=== PATIENT | female | born 1965 | race Caucasian/White ===

== ENCOUNTER 2016-10-07 16:59 | Emergency (ER) ==
[2016-10-07 17:17] VITALS: BP 129/72
--- NOTE | 2016-10-07 19:02 | PROVIDER DOCUMENTATION ---
HPI-EENT General - General Chief Complaint: Cold Symptoms Stated Complaint: SINUS HEADACHE,FEVER Time Seen by Provider: 10/07/16 18:53 Allergies/Adverse Reactions: Patient Allergies Allergy/AdvReac Type Severity Reaction Status Date / Time Corticosteroids Allergy Intermediate Unknown Verified 10/07/16 17:17 (Glucocorticoids) Penicillins Allergy Intermediate Unknown Verified 10/07/16 17:17 Latex, Natural Rubber Allergy HIVES Verified 10/07/16 17:17 Home Medications: Home Medication List Medication Instructions Recorded Confirmed Last Taken Type Cyanocobalamin (Vitamin B-12) 1,000 mg PO QAM 03/03/13 10/07/16 07/08/16 History [B-12] Multivitamin [Multi-Vitamin Daily] 1 each PO QHS 03/03/13 10/07/16 07/08/16 History Biotin [Biotin-D] 1 gm PO BID 10/09/14 10/07/16 07/08/16 History Buspirone [Buspar] 30 mg PO BID 10/09/14 10/07/16 07/08/16 History Cetirizine HCl [Zyrtec] 10 mg PO QAM 10/09/14 10/07/16 07/08/16 History Omeprazole [Prilosec] 20 mg PO QAM 10/09/14 10/07/16 07/08/16 History Paroxetine HCl [Paxil] 20 mg PO QPM 10/09/14 10/07/16 07/08/16 History Aspirin/Calcium Carbonate/Mag 325 mg PO QAM 11/18/14 10/07/16 07/08/16 History [Aspirin Buffered 325 mg Tab] ATORVAstatin [Lipitor] 20 mg PO QHS #30 tablet 11/20/14 10/07/16 07/08/16 Rx Amlodipine [Norvasc] 5 mg PO QAM 10/01/15 10/07/16 07/08/16 History Tramadol HCl [Ultram] 50 mg PO Q6H PRN PRN #12 tablet 12/23/15 10/07/16 Rx Cyclobenzaprine [Flexeril] 10 mg PO TID 03/30/16 10/07/16 07/08/16 History Furosemide [Lasix] 20 mg PO DAILY 09/01/16 03/11/17 12/10/16 History Isosorbide Mononitrate [Isosorbide 15 mg PO DAILY 03/30/16 10/07/16 07/08/16 History Mononitrate ER] Melatonin [Melatin] 3 mg PO QHS 03/30/16 10/07/16 07/08/16 History Meloxicam [Mobic] 15 mg PO DAILY 03/30/16 10/07/16 07/08/16 History [place]-3/Dha/Epa/Fish Oil [Fish Oil 1,000 mg PO DAILY 03/30/16 10/07/16 07/08/[address] 500 mg Softgel] Rizatriptan [Maxalt] 10 mg PO PRN PRN 03/30/16 10/07/16 07/08/16 History Albuterol 2.5MG/Ipratrop 0.5MG 3 ml INH Q4-6H PRN PRN #30 neb 07/08/16 10/07/16 Unknown Rx [Duoneb] Albuterol Sulfate [Albuterol 18 gm IH 3-4XDAY PRN PRN #1 07/08/16 10/07/16 Unknown Rx Sulfate Hfa] hfa.aer.ad Sulfamethoxazole/Trimethoprim 1 each PO BID #14 tablet 10/07/16 Unknown Rx [Bactrim Ds Tablet] - History of Present Illness-EENT General Nature of Presenting Problem: 50 yof c/o flu like symptoms for 2 days. Body aches, sinus congestion, cough, has has tenderness to maxillary sinuses. EENT Location: reports: nose, facial. denies: eye (R), eye (L), ear (R), ear (L ), mouth, throat, dental, other Quality of Pain: reports: aching, pressure. denies: none, burning, cramping, dull, fullness, indigestion, sharp, stabbing, tearing, throbbing, tightness, other Severity: reports: mild Onset/Duration: reports: 2 days ago Timing: reports: still present, getting worse. denies: improving, gone now, resolved prior to arrival, intermittent, constant, changing over time, other Prearrival Treatment: Initiated over the counter meds, Not Used no prearrival treatment, Not Used prescription meds, Not Used squeezing nostrils, Not Used nasal packing, Not Used flushing eyes, Not Used other Associated Symptoms: reports: cough, facial pain/swelling, sinus infection Other injuries?: denies: neck, head, back, other Locality of Occurance: Home Similar Symptoms Previously?: No Recently seen or treated by another doctor?: No - Eyes Eye Problem Symptoms: denies: eye pain, decrease vision, blurred vision, double vision, curtain, other, burning, itching, sensitivity to light, redness, matting , orbital swelling, eyelid swelling, foreign body sensation - Ears Ear Problem Symptoms: reports: none - Throat/Dental Throat/Dental Problem Symptoms: reports: none Review of Systems - Adult - REVIEW OF SYSTEMS - ADULT Constitutional: reports: see HPI, chills. denies: no symptoms reported, fever, fatique, night sweats, weight gain, weight loss, other Eyes: reports: no symptoms reported. denies: see HPI, discharge, dry eyes, decreased vision, blurred vision, double vision, eye pain, redness, other Ears, Nose, Mouth & Throat: reports: see HPI, sinus problem. denies: no symptoms reported, ear discharge, ear pain, hearing loss, tinnitus, epistaxis, nose pain, loose teeth, mouth/dental pain, mouth swelling, hoarseness, throat pain, throat swelling, other Cardiovascular: reports: no symptoms reported. denies: see HPI, chest pain, edema, heart murmur, irregular heart rate, orthopnea, palpitations, poor circulation, PND, syncope, other Respiratory: reports: no symptoms reported. denies: see HPI, chronic cough, cough, dyspnea on exertion, excessive sputum production, hemoptysis, pleurisy, shortness of breath, wheezing, other Gastrointestinal: reports: no symptoms reported. denies: see HPI, abdominal pain, hematemesis, constipation, diarrhea, difficulty swallowing, frequent heartburn, nausea, poor appetite, rectal bleeding, vomiting, other Genitourinary: reports: no symptoms reported. denies: see HPI, dysuria, discharge, frequency, flank pain, frequent UTI's, hematuria, hesitency, incontinence, urinary retention, urgency, other Musculoskeletal: reports: no symptoms reported. denies: see HPI, bone pain, back pain, frequent leg cramps, joint pain, joint swelling, muscle aches, muscle weakness, neck pain, other Integumentary: reports: no symptoms reported. denies: see HPI, hives, hair loss , itching, mole changes, nail changes, rash, skin sores/ulcer, skin thickening, other Neurological: reports: no symptoms reported. denies: see HPI, ataxia, dizziness /vertigo, headache/migraines, loss of balance, numbness, paresthesia, seizure, slurred speech, syncope, tremors, other Psychiatric: reports: no symptoms reported. denies: see HPI, anxiety, anti- depressant use, alcohol/drug dependence, depression, emotional problems, insomnia, panic attacks, suicidal thoughts, other Endocrine: reports: no symptoms reported. denies: see HPI, change in skin pigment, excessive sweating, goiter, cold intolerance, heat intolerance, increased hunger, increased thirst, polyuria, other Hematologic/Lymphatic: reports: no symptoms reported. denies: see HPI, blood clots, easy bruising, low blood count, lymphedema, prolonged bleeding, swollen lymph nodes, transfusions, other Allergic/Immunologic: reports: no symptoms reported. denies: see HPI, allergic reactions, allergic rhinitis, asthma, eczema, food allergy, frequent infections , hay fever, hives, positive PPD, urticaria, other All Other Systems: Reviewed and Negative Past History - Adult - PAST MEDICAL HISTORY-ADULT Review of Records: reports: Old Records Reviewed, Nursing Assessment Review, Medications Reviewed, Social history reviewed & non-contributory. Major Childhood Illnesses: reports: denies history Cardiovascular: reports: CAD, HTN, other (recurrent chest pain with f/u with Dr. Cornejo) Respiratory: reports: asthma, sleep apnea Gastrointestinal: reports: GERD Obstetrical/Gynecological: reports: other (Pre-menopausal) Genitourinary: reports: denies history Musculoskeletal: reports: arthritis Neurological: reports: denies history Psychiatric: reports: anxiety, depression Endocrine/Immune: reports: Diabetes Other Conditions: reports: denies history - PRIOR SURGERIES/PROCEDURES Surgical/Procedure History: reports: cholecystectomy, BTL, , tonsillectomy, other (D&C) - IMMUNIZATION STATUS Childhood Immunizations: See Nurse Assessment Flu Vaccine: See Nurse Assessment - FAMILY HISTORY Family History: reviewed, not pertinent Physical Exam- EENT - Physical Exam EENT Initial Vital Signs Reviewed: Yes General Appearance: appears well, alert, no apparent distress. negative: mild distress, moderate distress, severe distress, cachetic, obese, thin, anxious, lethargic, slow to respond, obtunded, combative, other Eye Exam: bilateral eye: normal inspection, PERRL, EOMI Ear Exam: bilateral ear: auricle normal, canal normal, TM normal Nasal Exam: discharge, sinus tenderness. negative: normal inspection, active bleeding, dried blood, foreign body, other Throat Exam: normal mouth inspection, pharynx normal. negative: dental tenderness, excessive drooling, foreign body, mandibular swelling, maxillary swelling, pharynx swelling, pharynx tenderness, tongue swollen, tonsillar exudate, tonsillar swelling, trismus, uvula swelling, voice changes, other Neck: non-tender, full range of motion, supple, normal inspection. negative: Brudzinski's sign, carotid bruit, C-spine tenderness, limited range of motion, lymphadenopathy, meningismus, trachial deviation, tender lateral, tender midline , thyromegaly, other Respiratory: chest non-tender, lungs clear, normal breath sounds, no pleuratic chest pain, no respiratory distress, no accessory muscle use. negative: respiratory distress, decreased breath sounds, accessory muscle use, crackles, rales, rhonchi, stridor, wheezing, dull on percussion, prolonged expiration, pain on inspiration, plerual rub, retractions, splinting, decreased rate, increased rate, crepitus, other Cardiovascular: normal peripheral pulses, regular rate, rhythm, no edema, no gallop, no JVD, no murmur. negative: JVD, bradycardia, tachycardia, diastolic murmur, systolic murmur, gallop/S3, gallop/S4, extra beats, friction rub, irregularly irregular, PMI displaced laterally, other Abdominal Exam: normal bowel sounds, non tender, soft, no organomegaly, no pulsatile mass. negative: abdominal bruit, abnormal bowel sounds, distended, guarding, rigid, rebound, tenderness, hernia, mass, hepatomegaly, spleenomegaly , McBurney's point tenderness, Neal's sign, obturator sign, prominent aortic pulsations, psoas, Rovsing's sign, other Lymphatic: no adenopathy. negative: axilla node tender, cervical node tenderness, inguinal node tender, enlargement, striations, streaking, other Back Exam: normal inspection, no CVA tenderness, no vertebral tenderness. negative: CVA tenderness, decreased range of motion, ecchymosis, kyphosis, lordosis, muscle spasm, scoliosis, swelling, vertebral tenderness, other Extremity: normal range of motion, non-tender, normal gait, normal inspection, no pedal edema, no calf tenderness, normal capillary refill. negative: pelvis stable, abnormal NV exam, calf tenderness, deformity, erythema, inflammation, joint effusion, pulse deficit, pedal edema, slow capillary refill, swelling, tenderness, other Integumentary: normal color, normal turgor, warm/dry. negative: abrasion(s), blanching, cyanosis, diaphoresis, decubitus, dependent lividity, ecchymosis, embolic lesions, erythema, signs of IVDA, jaundice, laceration(s), mottled, pallor, petechiae, purpura, rash, swelling, tenderness, warm, zoster-like rash, other Neurologic: grossly normal Psych/Mental Status: oriented x 3 Progress - PLAN OF CARE/RESULTS Progress/Plan/Lab Results: Laboratory Tests 10/07/16 19:00 Influenza A (Rapid) NEGATIVE Influenza B (Rapid) NEGATIVE Orders Category Date Time Status INFLUENZA SCREEN PL Stat Lab 10/07/16 19:00 Completed Vital Signs Temp Pulse Resp BP Pulse Ox 10/07/16 17:14 97.5 F L 55 L 18 129/72 99 Corticosteroids (Glucocorticoids) Allergy (Intermediate, Verified 10/07/16 17:17 ) Unknown JOINTS FEEL LIKE HOT NEEDLES Penicillins Allergy (Intermediate, Verified 10/07/16 17:17) Unknown Latex, Natural Rubber Allergy (Verified 10/07/16 17:17) HIVES Cyanocobalamin (Vitamin B-12) [B-12] 1,000 mg PO QAM 03/03/13 Multivitamin [Multi-Vitamin Daily] 1 each PO QHS 03/03/13 Biotin [Biotin-D] 1 gm PO BID 10/09/14 Buspirone [Buspar] 30 mg PO BID 10/09/14 Cetirizine HCl [Zyrtec] 10 mg PO QAM 10/09/14 Omeprazole [Prilosec] 20 mg PO QAM 10/09/14 Paroxetine HCl [Paxil] 20 mg PO QPM 10/09/14 Aspirin/Calcium Carbonate/Mag [Aspirin Buffered 325 mg Tab] 325 mg PO QAM ATORVAstatin [Lipitor] 20 mg PO QHS #30 tablet 11/20/14 Amlodipine [Norvasc] 5 mg PO QAM 10/01/15 Tramadol HCl [Ultram] 50 mg PO Q6H PRN PRN #12 tablet 12/23/15 Cyclobenzaprine [Flexeril] 10 mg PO TID 03/30/16 Furosemide [Lasix] 20 mg PO DAILY 03/30/16 Isosorbide Mononitrate [Isosorbide Mononitrate ER] 15 mg PO DAILY 03/30/16 Melatonin [Melatin] 3 mg PO QHS 03/30/16 Meloxicam [Mobic] 15 mg PO DAILY 03/30/16 [place]-3/Dha/Epa/Fish Oil [Fish Oil Dr 500 mg Softgel] 1,000 mg PO DAILY Rizatriptan [Maxalt] 10 mg PO PRN PRN 03/30/16 Albuterol 2.5MG/Ipratrop 0.5MG [Duoneb] 3 ml INH Q4-6H PRN PRN #30 neb 07/08/16 Albuterol Sulfate [Albuterol Sulfate Hfa] 18 gm IH 3-4XDAY PRN PRN #1 hfa.aer.ad 07/08/16 Sulfamethoxazole/Trimethoprim [Bactrim Ds Tablet] 1 each PO BID #14 tablet 10/07 Laboratory 10/07/16 19:00 Influenza A (Rapid) NEGATIVE Influenza B (Rapid) NEGATIVE Departure - Departure Time of Disposition Order: 20:09 DIAGNOSIS: Sinusitis Qualifiers: Sinusitis location: maxillary Chronicity: acute Recurrence: not specified as recurrent Qualified Code(s): J01.00 - Acute maxillary sinusitis, unspecified Disposition: HOME 01 Certified Medical Emergency: Emergent Condition: Stable Additional Instructions: ED Follow Up Instructions: You have been treated by a care provider in the Emergency Department. These instructions are being provided to you so you can have an understanding of how to care for yourself upon discharge. Upon discharge from the Emergency Department, you are responsible for making arrangements for follow-up care by a physician of your choice. Take all prescribed medications as directed. Return to the Emergency Department immediately for any new or worsening symptoms. You may call the Physician Referral phone number at [phone] to obtain a list of Physicians who are taking new patients. Prescriptions: Sulfamethoxazole/Trimethoprim [Bactrim Ds Tablet] 1 each PO BID #14 tablet Referrals: Niki Negron MD [STAFF PHYSICIAN] - Forms: Return to School/Parent Work Instructions: Sinusitis, [id number], Sulfamethoxazole; Trimethoprim, [id number] tablets Attestation - Physician/ CONNIE Attestation Patient care was provided by Advanced Practice Provider:: Yes Advanced Practice Provider:: Godwin Malave Advanced Practice Provider documentation review:: The Mid-level provider documentation, treatment plan and medical decision making was reviewed by the physician who agrees with all treatment and medical decision making by the MLP. Physician Attestation - Physician Attestation I, the provider, attest to the following statement:: Godwin Malave Physician documentation Attestation:: This documentation recorded by the scribe accurately reflects the service I personally performed and the decisions made by me.
== END 2016-10-07 20:31 | disposition home or self-care (01) ==
LOC: P.ED 16:59
DX: J01.00 Acute maxillary sinusitis, unspecified (principal); M79.1 Myalgia; R09.81 Nasal congestion; R05 Cough; R22.0 Localized swelling, mass and lump, head; R68.83 Chills (without fever); I25.10 Atherosclerotic heart disease of native coronary artery without angina pectoris; I10 Essential (primary) hypertension; K21.9 Gastro-esophageal reflux disease without esophagitis; M19.90 Unspecified osteoarthritis, unspecified site; E11.9 Type 2 diabetes mellitus without complications; F41.9 Anxiety disorder, unspecified; F32.9 Major depressive disorder, single episode, unspecified; Z79.899 Other long term (current) drug therapy; Z79.1 Long term (current) use of non-steroidal anti-inflammatories (NSAID); Z79.82 Long term (current) use of aspirin
CPT/HCPCS: 87804; 99283